=== PATIENT | female | born 1945 | race Caucasian/White ===

== ENCOUNTER 2016-10-05 09:07 | Day surgery (SDC) | payer BC, MEDICARE ==
[~2016-10-05 09:07] MED LIST: Buffered Lidocaine 1% SYRIN* 3 ML/SYR SYRINGE INTRADERM ONE; Famotidine IV* 10 MG/ML 2 ML (20 mg) IV ONE
[2016-10-05] MEDS ORDERED: fentaNYL* 50 MCG/ML 2 ML VIAL (100 MCG VIAL) ONE (11:28)
[2016-10-05] MEDS ORDERED: Lidocaine 2% PF * 5 ML VIAL ONE (11:36)
[2016-10-05] MEDS ORDERED: Propofol* 10 MG/ML 20 ML BTL IV PUSH ONE (11:36)
[2016-10-05] MEDS ORDERED: Ciprofloxacin 0.3% OPTH.SOL* 2.5 ML BTL ONE (12:00)
[2016-10-05 12:36] VITALS: BP 137/62
--- NOTE | 2016-10-05 14:22 | OP ---
DATE OF OPERATION: 10/05/16 [facility] DATE OF : 49 SURGEON: Toney Rivera MD. ETL LEAD: None. ANESTHESIOLOGIST: Dionte Gimenez DO ANESTHESIA: General. PRE-OP DIAGNOSIS: Chronic serous otitis media. POST-OP DIAGNOSIS: Chronic serous otitis media. OPERATIVE PROCEDURE: Bilateral myringotomy with T-tube placement. ESTIMATED BLOOD LOSS: Negligible. INDICATIONS: This is a 71-year-old woman who has over the last few years required multiple sets of tympanostomy tubes for treatment of chronic serous otitis media. When her most recent set of tubes rejected, the decision was made to place T-tubes in hopes of obtaining for her a longer symptom free period. Her ear canals were narrow though, and we felt that due to discomfort, she would prefer and do better with this done under general anesthesia. FINDINGS: Bilateral tympanic membrane retraction with serous effusions in the middle ear spaces. DESCRIPTION OF PROCEDURE: On 10/05/16, the patient was brought to the operating room. General anesthesia was induced with a mask. IV access was obtained and an LMA was placed. The left ear was addressed first. The cerumen was cleaned out of the ear canal. An inferior radial myringotomy was made. Fluid was suctioned out of the middle ear space and a Acosta modified T-tube was placed followed by ciprofloxacin drops and a cotton ball. The head was then turned. The procedure was repeated in an identical fashion in the right ear. Again, an inferior radial myringotomy was made and a Lonnie modified T- tube was placed following evacuation of the middle ear fluid. Ciprofloxacin drops were placed as well as a cotton ball. The patient was then returned to the care of the anesthesiologist, extubated and delivered to the PACU in stable condition. [id number]/[facility] #: [id number] MTDD
== END 2016-10-05 12:54 | disposition home or self-care (01) ==
LOC: OR 09:07
PROVIDERS: ATTEND Otolaryngology
DX: H65.23 Chronic serous otitis media, bilateral (principal); H69.83 Other specified disorders of Eustachian tube, bilateral; I10 Essential (primary) hypertension; E03.9 Hypothyroidism, unspecified; G47.30 Sleep apnea, unspecified
CPT/HCPCS: A9270-GY; J2704; J3010